=== PATIENT | male | born 1995 | race Hispanic/Latino ===

== ENCOUNTER 2021-03-16 09:31 | Emergency (ER) | payer OTHER ==
[~2021-03-16] VITALS: Ht 180.3 cm; Wt 112.7 kg
--- NOTE | 2021-03-16 11:05 | REP ---
INDICATION: pain with ambulation after lifting COMPARISON: None. TECHNIQUE: Six views right knee. FINDINGS: There is no evidence of acute fracture, dislocation, or intrinsic bone disease.Joint spaces are unremarkable. There is no radiographic evidence of a significant joint IMPRESSION: No fracture or dislocation. Negative right knee series. <Electronically signed by Robert Desouza > 03/16/21 [id number]
--- NOTE | 2021-03-16 12:14 | REP ---
INDICATION: left testicular/groin pain after weight lifting. COMPARISON: None. TECHNIQUE: High-resolution bilateral scrotal sonography. With Doppler. FINDINGS: Testicular parenchyma is normal homogeneous. No intratesticular mass lesion is seen on either side. Right testis measures 5.0 x 2.4 x 3.3 cm. Left testicular dimensions are 3.6 x 2.0 x 2.7 cm. Epididymi are unremarkable. There is a small varicocele in the left scrotum. There are 1 or 2 prominent veins extending into the testicle on the left. Varicocele increases and size with Valsalva. There is no evidence of hydrocele or hernia on either side. Testicular Doppler flow is normal bilaterally. Resistive indices are 0.66 on the right and 0.56 on the left. IMPRESSION: Small left-sided hydrocele. No intratesticular lesion. Normal Doppler flow to both testes. <Electronically signed by Young Sands > 03/16/21 [id number]
[2021-03-16 12:16] VITALS: BP 139/74
--- NOTE | 2021-03-16 12:17 | REP ---
INDICATION: left testicular/groin pain after weight lifting. COMPARISON: None. TECHNIQUE: Bilateral inguinal canal sonography. FINDINGS: Bilateral inguinal canal sonography is performed without and with Valsalva maneuver. There is no evidence of hernia defect. No bowel or fat protrusion is seen. No abnormal fluid collection is seen. No evidence of mass or adenopathy.. IMPRESSION: No evidence of hernia or other abnormality in either inguinal canal region.. <Electronically signed by Young Sands > 03/16/21 [id number]
[2021-03-16] MEDS ORDERED: NAPR-837 PO (12:56)
== END 2021-03-16 13:15 | disposition home or self-care (01) ==
LOC: M ED 09:31
DX: S76.911A Strain of unspecified muscles, fascia and tendons at thigh level, right thigh, initial encounter (principal); N43.3 Hydrocele, unspecified; S83.91XA Sprain of unspecified site of right knee, initial encounter; X50.0XXA Overexertion from strenuous movement or load, initial encounter; Y92.89 Other specified places as the place of occurrence of the external cause; Y93.B3 Activity, free weights; Y99.8 Other external cause status

== ENCOUNTER 2021-08-01 17:28 | Emergency (ER) | payer OTHER ==
[~2021-08-01] VITALS: Ht 182.9 cm; Wt 109.7 kg
[~2021-08-01 17:28] MED LIST: NAPR-837 PO
--- NOTE | 2021-08-01 21:16 | REPVR ---
PROCEDURE INFORMATION: Exam: CT Thoracic Spine Without Contrast Exam date and time: 08/01/2021 8:40 PM Age: 26 years old Clinical indication: Injury or trauma; Fall; Blunt trauma (contusions or hematomas); Additional info: Fell in shower 3 days ago, vertebral tenderness TECHNIQUE: Imaging protocol: Computed tomography images of the thoracic spine without contrast. Radiation optimization: All CT scans at this facility use at least one of these dose optimization techniques: automated exposure control; mA and/or kV adjustment per patient size (includes targeted exams where dose is matched to clinical indication); or iterative reconstruction. COMPARISON: No relevant prior studies available. FINDINGS: Vertebrae: No acute fracture. Normal alignment. T1-T2: No significant disc protrusion. No severe spinal canal stenosis. No significant neural foraminal narrowing. T2-T3: No significant disc protrusion. No severe spinal canal stenosis. No significant neural foraminal narrowing. T3-T4: No significant disc protrusion. No severe spinal canal stenosis. No significant neural foraminal narrowing. T4-T5: No significant disc protrusion. No severe spinal canal stenosis. No significant neural foraminal narrowing. T5-T6: No significant disc protrusion. No severe spinal canal stenosis. No significant neural foraminal narrowing. T6-T7: No significant disc protrusion. No severe spinal canal stenosis. No significant neural foraminal narrowing. T7-T8: No significant disc protrusion. No severe spinal canal stenosis. No significant neural foraminal narrowing. T8-T9: No significant disc protrusion. No severe spinal canal stenosis. No significant neural foraminal narrowing. T9-T10: No significant disc protrusion. No severe spinal canal stenosis. No significant neural foraminal narrowing. T10-T11: No significant disc protrusion. No severe spinal canal stenosis. No significant neural foraminal narrowing. T11-T12: No significant disc protrusion. No severe spinal canal stenosis. No significant neural foraminal narrowing. T12-L1: No significant disc protrusion. No severe spinal canal stenosis. No significant neural foraminal narrowing. IMPRESSION: Unremarkable thoracic spine. Electronically signed by: Antony Olivas On 08/01/2021 21:16:10 PM
[2021-08-01 21:40] VITALS: BP 140/78
== END 2021-08-01 21:51 | disposition home or self-care (01) ==
LOC: M ED 17:28
DX: M54.6 Pain in thoracic spine (principal); W18.2XXA Fall in (into) shower or empty bathtub, initial encounter; Y92.89 Other specified places as the place of occurrence of the external cause; Y93.E1 Activity, personal bathing and showering; Y99.8 Other external cause status; F17.200 Nicotine dependence, unspecified, uncomplicated